=== PATIENT | male | born 1935 | race Caucasian/White ===

== ENCOUNTER → 2016-09-06 | Outpatient (CLI) | payer MEDICARE, OTHER ==
--- NOTE | 2016-09-06 11:34 | MR ---
MRI brain with and without contrast HISTORY: Lung carcinoma, dizziness Multiplanar multisequence and postcontrast images brain following 15 cc MultiHance IV. Correlation to CT brain September There is no restricted diffusion to suggest subacute ischemia. There are foci of abnormal enhancement involving the bilateral cerebellar hemispheres, bilateral cerebral hemispheres which show enhancemen t, there is some localized areas of increased signal on inversion recovery and T2-weighted sequences likely local edema or gliosis. Left-sided supratentorial lesions each measuring approximately 8-9 mm on postcontrast images, the cerebellar lesions measure approximately 6 mm to 14 mm, there are 4-5 les ions. Right thalamus and right temporal lobe show 4 mm foci of enhancement. Right occipital 4 mm focu s of enhancement also noted. Left frontal lesion axial image 16 shows ring enhancement and measures 7 to 8 mm. Periventricular and subcortical hyperintensities are also present on inversion recovery and T2-weighted sequences. No mass effect or midline shift. No hemorrhage or hydrocephalus. Corpus callo sum, pituitary, cervical medullary junction, cerebellopontine angles are within normal limits. There is cortical atrophy. Possible mucous retention cyst left maxillary sinus. Orbits show symmetric appearance. IMPRESSION: Metastatic disease to the brain.
== END | disposition home or self-care (01) ==
LOC: RADMRIMAIN 10:25
PROVIDERS: ATTEND Internal Medicine Hematology & Oncology
DX: C34.90 Malignant neoplasm of unspecified part of unspecified bronchus or lung (principal); R42 Dizziness and giddiness
CPT/HCPCS: 70553; A9577

== ENCOUNTER 2016-10-07 09:39 | Emergency (ER) | payer MEDICARE, OTHER ==
[2016-10-07 09:53] VITALS: RESP 18
[2016-10-07] MEDS ORDERED: SODIUM CHLORIDE 0.9% 1,000 ML IV STA (10:36)
[2016-10-07] MEDS ORDERED: SODIUM CHLORIDE 0.9% 500 ML IV STA (10:36)
--- NOTE | 2016-10-07 10:45 | ED ---
General Adult HPI - General Chief complaint: Dizziness Stated complaint: hypotension sent by [facility] Time Seen by Provider: 10/07/16 09:59 Source: patient, family, RN notes reviewed, old records reviewed Mode of arrival: ambulatory Limitations: no limitations - History of Present Illness Initial comments: This is a 81-year-old male the ER for evaluation. The patient comes in the ER for evaluation of weakness, low blood pressure possible dehydration. Patient is going through radiation regarding CVA, and metastasis. Patient and family states that his appetite and a little decreased ability denies any complaints here patient states he feels well no fevers no cough no congestion no abdominal pain no chest pain no shortness of breath no nausea vomiting or diarrhea. - Related Data Home Medications Medication Instructions Recorded Confirmed Aspirin [Adult Low Dose Aspirin EC] 81 mg PO DAILY 09/26/15 10/07/16 Calcium Carbonate/Vitamin D3 1 tab PO DAILY 09/26/15 10/07/16 [Calcium 600 + Vit D Tablet] Carvedilol [Coreg] 6.25 mg PO BID 09/26/15 10/07/16 Cyanocobalamin [Vitamin B-12] 1,000 mg PO Q48H 09/26/15 10/07/16 Ferrous Sulfate [Iron (65 MG 325 mg PO DAILY 09/26/15 10/07/16 Elemental)] Glimepiride [Amaryl] 0.5 mg PO HS 09/26/15 10/07/16 Insulin Glargine [Lantus] 10 unit SQ PC-LUNCH 09/26/15 10/07/16 Multivit-Min/FA/Lycopene/Lut 1 tab PO DAILY 09/26/15 10/07/16 [Centrum Silver Tablet] metFORMIN HCL 2,000 mg PO BID 09/26/15 10/07/16 Ascorbic Acid [Vitamin C] 500 mg PO HS 10/07/16 10/07/16 Dexamethasone [Hexadrol] 4 mg PO DAILY 10/07/16 10/07/16 Lisinopril [Prinivil] 5 mg PO HS 10/07/16 10/07/16 Allergies Allergy/AdvReac Type Severity Reaction Status Date / Time No Known Allergies Allergy Verified 10/07/16 10:21 Review of Systems ROS Statement: Those systems with pertinent positive or pertinent negative responses have been documented in the HPI. ROS Other: All systems not noted in ROS Statement are negative. Past Medical History Past Medical History: Cancer, Diabetes Mellitus, Hyperlipidemia, Hypertension, Memory Impairment Additional Past Medical History / Comment(s): PATIENT FELL IN JULY 2015 AND HURT HIS RIGHT SHOULDER, A LUNG TUMOR WAS DISCOVERED ON X-RAY. HX OF RENAL CALCULI. Diagnosed Lung CA Sep 2015, brain cancer, radiation and chemo History of Any Multi-Drug Resistant Organisms: None Reported Past Surgical History: Tonsillectomy Additional Past Surgical History / Comment(s): LITHOTRIPSY, Lung Biopsy, cataract surgery Past Anesthesia/Blood Transfusion Reactions: No Reported Reaction Additional Past Anesthesia/Blood Transfusion Reaction / Comment(s): HAS NEVER HAD A GENERAL ANESTHESIA. Past Psychological History: Depression Additional Psychological History / Comment(s): SOME MEMORY LOSS, COMPETENT TO SIGN CONSENT. Smoking Status: Former smoker Past Alcohol Use History: Rare Additional Past Alcohol Use History / Comment(s): QUIT SMOKING 40 YRS AGO ABOUT 1 PPD. Past Drug Use History: None Reported - Past Family History Mother Family Medical History: Cancer Additional Family Medical History / Comment(s): ovarian General Exam Limitations: no limitations General appearance: alert, in no apparent distress, cachectic Head exam: Present: atraumatic, normocephalic, normal inspection Eye exam: Present: normal appearance, PERRL, EOMI. Absent: scleral icterus, conjunctival injection, periorbital swelling ENT exam: Present: mucous membranes dry, mucous membranes moist Neck exam: Present: normal inspection. Absent: tenderness, meningismus, lymphadenopathy Respiratory exam: Present: normal lung sounds bilaterally. Absent: respiratory distress, wheezes, rales, rhonchi, stridor Cardiovascular Exam: Present: regular rate, normal rhythm, normal heart sounds. Absent: systolic murmur, diastolic murmur, rubs, gallop, clicks GI/Abdominal exam: Present: soft, normal bowel sounds. Absent: distended, tenderness, guarding, rebound, rigid Extremities exam: Present: normal inspection, full ROM, normal capillary refill. Absent: tenderness, pedal edema, joint swelling, calf tenderness Back exam: Present: normal inspection Neurological exam: Present: alert, oriented X3, CN II-XII intact Psychiatric exam: Present: normal affect, normal mood Skin exam: Present: warm, dry, intact, normal color. Absent: rash Course Vital Signs 10/07/16 10/07/16 09:47 10:50 Temperature 97 F L Pulse Rate 86 81 Respiratory 18 18 Rate Blood Pressure 113/56 109/58 O2 Sat by Pulse 98 98 Oximetry - Reevaluation(s) Reevaluation #1: 10/07/16 11:36 Patient's dizziness is resolving with IV fluid, symptoms are improving blood pressures in normal and stable Medical Decision Making - Medical Decision Making 81 male ER for evaluation of low blood pressure. At this time patient is a symptomatic measures with her bowel pain, no recent nausea vomiting or diarrhea , mild decreased appetite mild dehydration. Patient's resuscitated emergency room, this time feels better and will be discharged home - Lab Data Result diagrams: 10/07/16 09:58 10/07/16 09:58 Lab Results 10/07/16 10/07/16 10/07/16 Range/Units 09:58 09:58 09:58 WBC 3.6 L (3.8-10.6) k/uL RBC 3.79 L (4.30-5.90) m/uL Hgb 12.1 L (13.0-17.5) gm/dL Hct 36.1 L (39.0-53.0) % MCV 95.2 (80.0-100.0) fL MCH 31.9 (25.0-35.0) pg MCHC 33.5 (31.0-37.0) g/dL RDW 14.5 (11.5-15.5) % Plt Count 69 L (150-450) k/uL Neutrophils % 83 % Lymphocytes % 8 % Monocytes % 6 % Eosinophils % 2 % Basophils % 0 % Neutrophils # 3.0 (1.3-7.7) k/uL Lymphocytes # 0.3 L (1.0-4.8) k/uL Monocytes # 0.2 (0-1.0) k/uL Eosinophils # 0.1 (0-0.7) k/uL Basophils # 0.0 (0-0.2) k/uL Sodium 141 (137-145) mmol/L Potassium 3.9 (3.5-5.1) mmol/L Chloride 102 (98-107) mmol/L Carbon Dioxide 29 (22-30) mmol/L Anion Gap 10 mmol/L BUN 33 H (9-20) mg/dL Creatinine 1.08 (0.66-1.25) mg/dL Est GFR (MDRD) Af Amer >60 (>60 ml/min/1.73 sqM) Est GFR (MDRD) Non-Af >60 (>60 ml/min/1.73 sqM) Glucose 148 H (74-99) mg/dL Calcium 9.3 (8.4-10.2) mg/dL Phosphorus 2.9 (2.5-4.5) mg/dL Magnesium 1.5 L (1.6-2.3) mg/dL Total Bilirubin 0.4 (0.2-1.3) mg/dL AST 13 L (17-59) U/L ALT 33 (21-72) U/L Alkaline Phosphatase 50 (38-126) U/L Total Creatine Kinase <20 L (55-170) U/L CK-MB (CK-2) 1.1 (0.0-2.4) ng/mL CK-MB (CK-2) Rel Index 0.0 Troponin I <0.012 (0.000-0.034) ng/mL Total Protein 5.6 L (6.3-8.2) g/dL Albumin 3.0 L (3.5-5.0) g/dL Urine Color Urine Appearance (Clear) Urine pH (5.0-8.0) Ur Specific [place] (1.001-1.035) Urine Protein (Negative) Urine Glucose (UA) (Negative) Urine Ketones (Negative) Urine Blood (Negative) Urine Nitrate (Negative) Urine Bilirubin (Negative) Urine Urobilinogen (<2.0) mg/dL Ur Leukocyte Esterase (Negative) Urine RBC (0-5) /hpf Urine WBC (0-5) /hpf Ur Squamous Epith Cells (0-4) /hpf Calcium Oxalate Crystal (None) /hpf Urine Mucus (None) /hpf 10/07/16 Range/Units 10:51 WBC (3.8-10.6) k/uL RBC (4.30-5.90) m/uL Hgb (13.0-17.5) gm/dL Hct (39.0-53.0) % MCV (80.0-100.0) fL MCH (25.0-35.0) pg MCHC (31.0-37.0) g/dL RDW (11.5-15.5) % Plt Count (150-450) k/uL Neutrophils % % Lymphocytes % % Monocytes % % Eosinophils % % Basophils % % Neutrophils # (1.3-7.7) k/uL Lymphocytes # (1.0-4.8) k/uL Monocytes # (0-1.0) k/uL Eosinophils # (0-0.7) k/uL Basophils # (0-0.2) k/uL Sodium (137-145) mmol/L Potassium (3.5-5.1) mmol/L Chloride (98-107) mmol/L Carbon Dioxide (22-30) mmol/L Anion Gap mmol/L BUN (9-20) mg/dL Creatinine (0.66-1.25) mg/dL Est GFR (MDRD) Af Amer (>60 ml/min/1.73 sqM) Est GFR (MDRD) Non-Af (>60 ml/min/1.73 sqM) Glucose (74-99) mg/dL Calcium (8.4-10.2) mg/dL Phosphorus (2.5-4.5) mg/dL Magnesium (1.6-2.3) mg/dL Total Bilirubin (0.2-1.3) mg/dL AST (17-59) U/L ALT (21-72) U/L Alkaline Phosphatase (38-126) U/L Total Creatine Kinase (55-170) U/L CK-MB (CK-2) (0.0-2.4) ng/mL CK-MB (CK-2) Rel Index Troponin I (0.000-0.034) ng/mL Total Protein (6.3-8.2) g/dL Albumin (3.5-5.0) g/dL Urine Color Yellow Urine Appearance Clear (Clear) Urine pH 5.5 (5.0-8.0) Ur Specific [place] 1.024 (1.001-1.035) Urine Protein Trace H (Negative) Urine Glucose (UA) Trace H (Negative) Urine Ketones Trace H (Negative) Urine Blood Negative (Negative) Urine Nitrate Negative (Negative) Urine Bilirubin Negative (Negative) Urine Urobilinogen <2.0 (<2.0) mg/dL Ur Leukocyte Esterase Small H (Negative) Urine RBC 3 (0-5) /hpf Urine WBC 6 H (0-5) /hpf Ur Squamous Epith Cells <1 (0-4) /hpf Calcium Oxalate Crystal Rare H (None) /hpf Urine Mucus Rare H (None) /hpf Disposition Clinical Impression: Dehydration Disposition: HOME SELF-CARE Condition: Good Instructions: Dehydration (ED) Referrals: Anshul Betancourt MD [Primary Care Provider] - 1-2 days
[2016-10-07 10:56] LABS: Basophils % (A) 0 %; CHCM 33.7; Eosinophils # (A) 0.1 k/uL (0-0.7); Eosinophils % (A) 2 %; HCT 36.1 % (39.0-53.0); HDW 2.39; HGB 12.1 gm/dL (13.0-17.5); Luc # (Auto) 0.04; Luc % (Auto) 1; Lymphocytes # (A) 0.3 k/uL (1.0-4.8); Lymphocytes % (A) 8 %; MCH 31.9 pg (25.0-35.0); MCHC 33.5 g/dL (31.0-37.0); MCV 95.2 fL (80.0-100.0); Mean Platelet Volume 8.3; Monocytes # (A) 0.2 k/uL (0-1.0); Monocytes % (A) 6 %; Neutrophils % (A) 83 %; RBC 3.79 m/uL (4.30-5.90); RDW 14.5 % (11.5-15.5); WBC 3.6 k/uL (3.8-10.6); WBC (Perox) 3.74
[2016-10-07 11:04] LABS: Appearance,Urine Clear (Clear); Bilirubin,Urine Negative (Negative); Calcium Oxalate Crystals,Urine Rare /hpf; Glucose,Urine (UA) Trace (Negative); Ketones,Urine Trace (Negative); Leukocyte Esterase,Urine Small (Negative); Mucus,Urine Rare /hpf; Nitrite,Urine Negative (Negative); PH, Urine 5.5 (5.0-8.0); Particle Count 1354; Protein,Urine Trace (Negative); RBC,Urine 3 /hpf (0-5); Specific Gravity,Urine 1.024 (1.001-1.035); Squamous Epithelial Cell,Urine <1 /hpf (0-4); UA Billing (MACRO vs. MICRO) MICRO; Urobilinogen,Urine <2.0 mg/dL (<2.0); WBC,Urine 6 /hpf (0-5)
[2016-10-07 11:08] LABS: ALT 33 U/L (21-72); AST 13 U/L (17-59); Alkaline Phosphatase 50 U/L (38-126); Anion Gap 10 mmol/L; Blood Urea Nitrogen 33 mg/dL (9-20); Calcium 9.3 mg/dL (8.4-10.2); Carbon Dioxide 29 mmol/L (22-30); Chloride 102 mmol/L (98-107); Glucose 148 mg/dL (74-99); Magnesium 1.5 mg/dL (1.6-2.3); Non-African American GFR(MDRD) >60 (>60 ml/min/1.73 sqM); Phosphorous 2.9 mg/dL (2.5-4.5); Potassium 3.9 mmol/L (3.5-5.1); Sodium 141 mmol/L (137-145); Total Bilirubin 0.4 mg/dL (0.2-1.3); Total Protein 5.6 g/dL (6.3-8.2)
[2016-10-07 11:18] LABS: Creatine Kinase <20 U/L (55-170)
[2016-10-07 11:30] LABS: Creatine Kinase MB 1.1 ng/mL (0.0-2.4); Troponin I <0.012 ng/mL (0.000-0.034)
[2016-10-07 12:06] VITALS: BP 120/56; PULSE 18; TEMP 97.5
== END 2016-10-07 12:16 | disposition home or self-care (01) ==
LOC: EC 09:39
DX: E86.0 Dehydration (principal); Z79.82 Long term (current) use of aspirin; Z79.4 Long term (current) use of insulin; Z79.899 Other long term (current) drug therapy; E11.9 Type 2 diabetes mellitus without complications; I10 Essential (primary) hypertension; Z87.891 Personal history of nicotine dependence; Z79.52 Long term (current) use of systemic steroids; C34.90 Malignant neoplasm of unspecified part of unspecified bronchus or lung; C79.31 Secondary malignant neoplasm of brain
CPT/HCPCS: 36415; 80053; 81001; 82550; 82553; 83735; 84100; 84484; 85025; 87086; 96360; 99284

== ENCOUNTER 2016-10-16 09:20 | Inpatient (IN) | payer OTHER, MEDICARE ==
[2016-10-16] MEDS ORDERED: SODIUM CHLORIDE 0.9% 500 ML IV ONE (09:32)
--- NOTE | 2016-10-16 09:35 | ED ---
General Adult HPI - General Chief complaint: Weakness Stated complaint: Fall Time Seen by Provider: 10/16/16 09:20 Source: patient, family, EMS, RN notes reviewed Mode of arrival: EMS - History of Present Illness Initial comments: This is an 81-year-old male who presents to the emergency department with a past medical history significant for lung brain cancer. Patient has been falling more recently was seen in the ER a few days ago for having fallen. Today he tried to get up out of bed and slipped out of bed and hit his head on the nightstand with down he does not complain of headache now is conscious he was not days. Patient denies any neck pain patient denies any numbness weakness. Patient currently has no complaint of pain. He denies any chest pain or abdominal pain. Patient denies difficulty breathing shortness of breath. Patient states she just extremely weak and he was unable to stand up from sitting in bed. Patient denies any fever chills or cough recently. Patient denies any back pain. According to he also has an abrasion on his back over the right scapula. - Related Data Home Medications Medication Instructions Recorded Confirmed Aspirin [Adult Low Dose Aspirin EC] 81 mg PO DAILY 09/26/15 10/16/16 Calcium Carbonate/Vitamin D3 1 tab PO DAILY 09/26/15 10/16/16 [Calcium 600 + Vit D Tablet] Carvedilol [Coreg] 3.125 mg PO BID 09/26/15 10/16/16 Cyanocobalamin [Vitamin B-12] 1,000 mg PO Q48H 09/26/15 10/16/16 Ferrous Sulfate [Iron (65 MG 325 mg PO DAILY 09/26/15 10/16/16 Elemental)] Glimepiride [Amaryl] 0.5 mg PO HS 09/26/15 10/16/16 Insulin Glargine [Lantus] 10 unit SQ PC-LUNCH 09/26/15 10/16/16 Multivit-Min/FA/Lycopene/Lut 1 tab PO DAILY 09/26/15 10/16/16 [Centrum Silver Tablet] metFORMIN HCL 1,000 mg PO BID 09/26/15 10/16/16 Ascorbic Acid [Vitamin C] 500 mg PO HS 10/07/16 10/16/16 Saxagliptin HCl [Onglyza] 5 mg PO DAILY 10/16/16 10/16/16 Allergies Allergy/AdvReac Type Severity Reaction Status Date / Time No Known Allergies Allergy Verified 10/16/16 10:01 Review of Systems ROS Statement: Those systems with pertinent positive or pertinent negative responses have been documented in the HPI. ROS Other: All systems not noted in ROS Statement are negative. Past Medical History Past Medical History: Cancer, Diabetes Mellitus, Hyperlipidemia, Hypertension, Memory Impairment Additional Past Medical History / Comment(s): PATIENT FELL IN JULY 2015 AND HURT HIS RIGHT SHOULDER, A LUNG TUMOR WAS DISCOVERED ON X-RAY. HX OF RENAL CALCULI. Diagnosed Lung CA Sep 2015, brain cancer, radiation and chemo History of Any Multi-Drug Resistant Organisms: None Reported Past Surgical History: Tonsillectomy Additional Past Surgical History / Comment(s): LITHOTRIPSY, Lung Biopsy, cataract surgery Past Anesthesia/Blood Transfusion Reactions: No Reported Reaction Additional Past Anesthesia/Blood Transfusion Reaction / Comment(s): HAS NEVER HAD A GENERAL ANESTHESIA. Past Psychological History: Depression Additional Psychological History / Comment(s): SOME MEMORY LOSS, COMPETENT TO SIGN CONSENT. Smoking Status: Former smoker Past Alcohol Use History: Rare Additional Past Alcohol Use History / Comment(s): QUIT SMOKING 40 YRS AGO ABOUT 1 PPD. Past Drug Use History: None Reported - Past Family History Mother Family Medical History: Cancer Additional Family Medical History / Comment(s): ovarian General Exam - General Exam Comments Initial Comments: GENERAL: Patient is well-developed and well-nourished. Patient is nontoxic and well- hydrated and is in mild distress. ENT: Neck is soft and supple. No significant lymphadenopathy is noted. Oropharynx is clear. Moist mucous membranes. Neck has full range of motion without eliciting any pain. EYES: The sclera were anicteric and conjunctiva were pink and moist. Extraocular movements were intact and pupils were equal round and reactive to light. Eyelids were unremarkable. PULMONARY: Unlabored respirations. Good breath sounds bilaterally. Patient has bibasilar crackles. CARDIOVASCULAR: There is a regular rate and rhythm without any murmurs gallops or rubs. ABDOMEN: Soft and nontender with normal bowel sounds. No palpable organomegaly was noted. There is no palpable pulsatile mass. SKIN: Skin is clear with no lesions or rashes and otherwise unremarkable. NEUROLOGIC: Patient is alert and oriented x3. Cranial nerves II through XII are grossly intact. Motor and sensory are also intact. Normal speech, volume and content. Symmetrical smile. MUSCULOSKELETAL: Normal extremities with adequate strength and full range of motion. LYMPHATICS: No significant lymphadenopathy is noted PSYCHIATRIC: Normal psychiatric evaluation. Normal interpersonal interactions appears functionally intact in deals appropriately with others. No signs of depression. No signs of anxiety. Course Vital Signs 10/16/16 10/16/16 10/16/16 09:27 09:32 10:39 Temperature 101.6 F H 99.6 F Pulse Rate 104 H 101 H 95 Respiratory 22 18 18 Rate Blood Pressure 140/63 115/59 O2 Sat by Pulse 96 97 Oximetry Medical Decision Making - Medical Decision Making EKG shows a normal sinus rhythm at 99 bpm CA interval 224 QRS is 118 QT interval 348 QTC is 446. Patient's EKG shows a right bundle branch block there is no ST segment elevation or depression Chest x-ray shows an area of possible infiltrate that combination with the fever shortness of breath admitted the patient for pneumonia. Spoke with Dr. Christensen admit the patient to Dr. Christensen I continued antibiotics floor. - Lab Data Result diagrams: 10/16/16 09:35 10/16/16 09:35 Lab Results 10/16/16 10/16/16 10/16/16 Range/Units 09:30 09:35 09:35 WBC 3.7 L (3.8-10.6) k/uL RBC 3.36 L (4.30-5.90) m/uL Hgb 10.8 L (13.0-17.5) gm/dL Hct 31.1 L (39.0-53.0) % MCV 92.5 (80.0-100.0) fL MCH 32.1 (25.0-35.0) pg MCHC 34.7 (31.0-37.0) g/dL RDW 14.3 (11.5-15.5) % Plt Count 82 L (150-450) k/uL Neutrophils % 87 % Lymphocytes % 8 % Monocytes % 4 % Eosinophils % 1 % Basophils % 0 % Neutrophils # 3.2 (1.3-7.7) k/uL Lymphocytes # 0.3 L (1.0-4.8) k/uL Monocytes # 0.1 (0-1.0) k/uL Eosinophils # 0.0 (0-0.7) k/uL Basophils # 0.0 (0-0.2) k/uL Manual Slide Review Performed Sodium 140 (137-145) mmol/L Potassium 4.1 (3.5-5.1) mmol/L Chloride 103 (98-107) mmol/L Carbon Dioxide 29 (22-30) mmol/L Anion Gap 8 mmol/L BUN 18 (9-20) mg/dL Creatinine 0.87 (0.66-1.25) mg/dL Est GFR (MDRD) Af Amer >60 (>60 ml/min/1.73 sqM) Est GFR (MDRD) Non-Af >60 (>60 ml/min/1.73 sqM) Glucose 104 H (74-99) mg/dL POC Glucose (mg/dL) (75-99) mg/dL POC [employer] ID Plasma Lactic Acid Darius (0.7-2.0) mmol/L Calcium 9.3 (8.4-10.2) mg/dL Total Bilirubin 0.7 (0.2-1.3) mg/dL AST 16 L (17-59) U/L ALT 30 (21-72) U/L Alkaline Phosphatase 58 (38-126) U/L Total Protein 5.6 L (6.3-8.2) g/dL Albumin 2.8 L (3.5-5.0) g/dL Influenza Type A RNA Not Detected (Not Detectd) Influenza Type B (PCR) Not Detected (Not Detectd) 10/16/16 10/16/16 Range/Units 09:35 09:37 WBC (3.8-10.6) k/uL RBC (4.30-5.90) m/uL Hgb (13.0-17.5) gm/dL Hct (39.0-53.0) % MCV (80.0-100.0) fL MCH (25.0-35.0) pg MCHC (31.0-37.0) g/dL RDW (11.5-15.5) % Plt Count (150-450) k/uL Neutrophils % % Lymphocytes % % Monocytes % % Eosinophils % % Basophils % % Neutrophils # (1.3-7.7) k/uL Lymphocytes # (1.0-4.8) k/uL Monocytes # (0-1.0) k/uL Eosinophils # (0-0.7) k/uL Basophils # (0-0.2) k/uL Manual Slide Review Sodium (137-145) mmol/L Potassium (3.5-5.1) mmol/L Chloride (98-107) mmol/L Carbon Dioxide (22-30) mmol/L Anion Gap mmol/L BUN (9-20) mg/dL Creatinine (0.66-1.25) mg/dL Est GFR (MDRD) Af Amer (>60 ml/min/1.73 sqM) Est GFR (MDRD) Non-Af (>60 ml/min/1.73 sqM) Glucose (74-99) mg/dL POC Glucose (mg/dL) 104 H (75-99) mg/dL POC [employer] Regist[employer] ID Sixto Champagne Plasma Lactic Acid Darius 1.2 (0.7-2.0) mmol/L Calcium (8.4-10.2) mg/dL Total Bilirubin (0.2-1.3) mg/dL AST (17-59) U/L ALT (21-72) U/L Alkaline Phosphatase (38-126) U/L Total Protein (6.3-8.2) g/dL Albumin (3.5-5.0) g/dL Influenza Type A RNA (Not Detectd) Influenza Type B (PCR) (Not Detectd) Disposition Clinical Impression: Pneumonia Disposition: [facility]MITTED IP TO [facility] Time of Disposition: 11:30
[2016-10-16 09:39] LABS: Glucose,Whole Blood 104 mg/dL (75-99)
[2016-10-16 09:59] LABS: Basophils % (A) 0 %; CH 31.8; CHCM 34.5; Eosinophils % (A) 1 %; HCT 31.1 % (39.0-53.0); HDW 2.68; HGB 10.8 gm/dL (13.0-17.5); Luc # (Auto) 0.03; Luc % (Auto) 1; Lymphocytes # (A) 0.3 k/uL (1.0-4.8); Lymphocytes % (A) 8 %; MCH 32.1 pg (25.0-35.0); MCHC 34.7 g/dL (31.0-37.0); MCV 92.5 fL (80.0-100.0); Mean Platelet Volume 8.8; Monocytes # (A) 0.1 k/uL (0-1.0); Monocytes % (A) 4 %; Neutrophils # (A) 3.2 k/uL (1.3-7.7); Neutrophils % (A) 87 %; RBC 3.36 m/uL (4.30-5.90); RDW 14.3 % (11.5-15.5); WBC 3.7 k/uL (3.8-10.6); WBC (Perox) 3.74
--- NOTE | 2016-10-16 09:59 | XR ---
EXAMINATION TYPE: XR chest 2V DATE OF EXAM: 10/16/2016 9:52 AM COMPARISON: 09/29/2015 TECHNIQUE: PA and lateral views submitted. HISTORY: Difficulty breathing FINDINGS: There is a right hilar and suprahilar soft tissue mass. Area of consolidation the right upper lobe no von. Left lung appears clear. Underlying COPD noted. Hypertrophic and degenerative change of the spin e. IMPRESSION: 1. Soft tissue mass right upper lobe corresponds to PET scan abnormality. 2. Subsegmental consolidation right upper lobe could be related to atelectasis or infiltrate.
[2016-10-16 10:11] LABS: ALT 30 U/L (21-72); AST 16 U/L (17-59); Alkaline Phosphatase 58 U/L (38-126); Anion Gap 8 mmol/L; Blood Urea Nitrogen 18 mg/dL (9-20); Calcium 9.3 mg/dL (8.4-10.2); Carbon Dioxide 29 mmol/L (22-30); Chloride 103 mmol/L (98-107); Glucose 104 mg/dL (74-99); Non-African American GFR(MDRD) >60 (>60 ml/min/1.73 sqM); Potassium 4.1 mmol/L (3.5-5.1); Sodium 140 mmol/L (137-145); Total Bilirubin 0.7 mg/dL (0.2-1.3); Total Protein 5.6 g/dL (6.3-8.2)
[2016-10-16 10:18] LABS: Manual Review Performed
[2016-10-16] MEDS ORDERED: LEVOFLOXACIN 750MG-D5W PMX 750 MG in DEXTROSE/WATER 1 150ML.BAG IVPB STA (10:19)
[2016-10-16] MEDS ORDERED: PNEUMONIA PROTOCOL UTILIZED 1 EACH MISC PO PRN (11:30)
[2016-10-16 11:59] LABS: Appearance,Urine Clear (Clear); Bilirubin,Urine Negative (Negative); Glucose,Urine (UA) Trace (Negative); Ketones,Urine Negative (Negative); Leukocyte Esterase,Urine Negative (Negative); Mucus,Urine Rare /hpf; Nitrite,Urine Negative (Negative); Particle Count 2028; Protein,Urine 1+ (Negative); Specific Gravity,Urine 1.018 (1.001-1.035); UA Billing (MACRO vs. MICRO) MICRO; Urobilinogen,Urine <2.0 mg/dL (<2.0); WBC,Urine 3 /hpf (0-5)
[2016-10-16] MEDS: SODIUM CHLORIDE 0.9% 1,000 ML IV SCH (12:06)
[2016-10-16] MEDS: AZITHROMYCIN 500 MG TAB PO SCH (16:08)
[2016-10-16 17:10] LABS: Glucose,Whole Blood 174 mg/dL (75-99)
[2016-10-16] MEDS: IPRATROPIUM-ALBUTEROL 3 ML NEB INHALATION SCH ×3 (17:32→19:30)
[2016-10-16] MEDS: INSULIN LISPRO (humaLOG) 300 UNIT/3 ML VIAL SQ SCH ×2 (17:35→20:55)
[2016-10-16] MEDS: CARVEDILOL 3.125 MG TAB PO SCH (17:35)
[2016-10-16 20:06] LABS: Glucose,Whole Blood 105 mg/dL (75-99)
--- NOTE | 2016-10-16 22:24 | HP ---
DATE OF ADMISSION: Patient is an 81-year-old with a history of lung cancer on the right side. Patient is receiving chemotherapy. 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 He came in after a fall and patient was found to have fever. Patient denied any cough or runny nose. Patient denied any fever or chills, although patient's chest x-ray did show some suspicious pneumonic process. UA is essentially within normal limits. Patient does not have any other signs or symptoms of infection. Patient is admitted for pneumonia. Patient was never admitted in the hospital; was in ER recently. Patient was started on Rocephin and azithromycin. Patient's influenza testing is negative. Patient is quite weak. Will obtain PT and OT consultation. Part of his weakness is a part of cancer cachexia. ROS: All other systems were reviewed and were negative. Home medications include: 1. Aspirin. 2. Calcium carbonate. 3. Coreg. 4. Cyanocobalamin. 5. Ferrous sulfate. 6. Glimepiride. 7. Glargine. 8. Multivitamin. 9. Metformin. 10. Ascorbic acid. 11. Saxagliptin. ALLERGIES: NO KNOWN DRUG ALLERGIES. Past medical history is significant for: 1. Diabetes mellitus. 2. 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 3. Hypertension. 4. Tonsillectomy. 5. Lithotripsy. 6. Cataract surgery in the past. 7. Depression. Former smoker; used to smoke 1 pack per day. Denied any alcohol abuse or any drug abuse. FAMILY HISTORY: Mother had ovarian cancer. PHYSICAL EXAMINATION: VITAL SIGNS: Temperature 98.5, pulse of 93, respiratory rate of 18. Blood pressure is 103/58. Saturating at 93% on 2 L of oxygen by nasal cannula. GENERAL: Patient has thin build. Appears to be tired, with malaise. HEENT: Pupils are round and equally reacting to light. EOMI. No scleral icterus. No conjunctival pallor. Normocephalic, atraumatic. No pharyngeal erythema. No thyromegaly. CARDIOVASCULAR: S1 and S2 present. No murmurs, rubs, or gallops. PULMONARY: Clear to auscultation. No wheezing was appreciated. No crackles were appreciated. I did not hear any clear-cut bronchophony or egophony on exam. ABDOMEN: Soft, nontender, nondistended, normoactive bowel sounds. No palpable organomegaly. MUSCULOSKELETAL: No joint swelling or deformity. EXTREMITIES: No cyanosis, clubbing, or pedal edema. NEUROLOGICAL: Gross neurological examination did not reveal any focal deficits. SKIN: No rashes. LABORATORY DATA: CBC, CMP are abnormal for low platelet count of 82,000, hemoglobin of 10.8. Normocytic anemia, so probably anemia of chronic disease. Trace protein in the urine. Chest x-ray as mentioned above. ASSESSMENT AND PLAN: 1. Sepsis, probably due to postobstructive pneumonia. Patient will be started on ceftriaxone and azithromycin. Probably Unasyn may more appropriate, but we will see how he does with ceftriaxone and Rocephin. Levofloxacin will be discontinued. 2. Generalized weakness; may be related to pneumonia or cancer cachexia itself. 3. Lung cancer with metastatic disease. Patient is receiving chemotherapy and radiation therapy. 4. Generalized weakness. Will get PT and OT consultation. 5. Thrombocytopenia secondary to chemoradiation therapy. 6. Diabetes mellitus. Will use sliding scale insulin. 7. Hyperlipidemia, for which we will go ahead and continue his home medications. MTDD
[2016-10-16 22:48] LABS: Hemoglobin A1C 7.3 % (4.2-6.1)
[2016-10-17 06:50] LABS: Glucose,Whole Blood 130 mg/dL (75-99)
[2016-10-17] MEDS: INSULIN LISPRO (humaLOG) 300 UNIT/3 ML VIAL SQ SCH ×4 (07:35→20:36)
[2016-10-17] MEDS: IPRATROPIUM-ALBUTEROL 3 ML NEB INHALATION SCH ×4 (07:47→21:29)
[2016-10-17] MEDS ORDERED: LEVOFLOXACIN 750MG-D5W PMX 750 MG in DEXTROSE/WATER 1 150ML.BAG IVPB SCH (09:00)
[2016-10-17] MEDS: CARVEDILOL 3.125 MG TAB PO SCH ×2 (09:07→17:21)
[2016-10-17] MEDS: ASPIRIN 81 MG CHEW PO SCH (09:07)
[2016-10-17] MEDS: AZITHROMYCIN 500 MG TAB PO SCH (09:07)
[2016-10-17 09:09] LABS: CH 31.6; CHCM 33.6; HCT 30.3 % (39.0-53.0); HDW 2.77; HGB 10.1 gm/dL (13.0-17.5); MCH 31.4 pg (25.0-35.0); MCHC 33.3 g/dL (31.0-37.0); MCV 94.3 fL (80.0-100.0); Mean Platelet Volume 7.9; RBC 3.21 m/uL (4.30-5.90); RDW 13.9 % (11.5-15.5); WBC 3.2 k/uL (3.8-10.6)
[2016-10-17 09:20] LABS: Anion Gap 10 mmol/L; Blood Urea Nitrogen 14 mg/dL (9-20); Calcium 8.6 mg/dL (8.4-10.2); Carbon Dioxide 24 mmol/L (22-30); Chloride 101 mmol/L (98-107); Glucose 137 mg/dL (74-99); Non-African American GFR(MDRD) >60 (>60 ml/min/1.73 sqM); Potassium 3.6 mmol/L (3.5-5.1); Sodium 135 mmol/L (137-145)
[2016-10-17 11:13] LABS: Glucose,Whole Blood 192 mg/dL (75-99)
[2016-10-17 11:58] VITALS: BMI 20.5
[2016-10-17] MEDS: SODIUM CHLORIDE 0.9% 1,000 ML IV SCH ×3 (12:09→19:38)
[2016-10-17] MEDS: INSULIN GLARGINE 100 UNIT/ML 10 ML VIAL SQ SCH (12:48)
[2016-10-17 16:49] LABS: Glucose,Whole Blood 276 mg/dL (75-99)
--- NOTE | 2016-10-17 17:48 | P.CONS ---
History of Present Illness - Reason for Consult Consult date: 10/17/16 malignancy Requesting physician: Sahil Christensen - Chief Complaint fall, weakness - History of Present Illness Pt is a very pleasant 81 year old male pt of Dr. Ford who was had a fall resulting in back pain in Sep 2015. He was seen by PCP and xrays revealed RUL mass, CT on 09/27/15 revealed 2.7 X 2.7cm RUL mass, no radiologic evident of mediastinal involvement. 11/22/15 PET revealed increased uptake at primary site, right posterior 6th rib with expansile lesion and at L5 with large lytic, malignant-appearing, lesion, bone scan positive at the 2 lesions described, no other sites. 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 He was started on carboplatin and taxol days 1 & 8. PET f/u showed improved primary lung tumor. Pt was having progressive chemo toxicities including fatigue, lack of stamina anorexia so treatment was held in Mid February. After break from chemo pt was feeling much better so nivolumab therapy was initiated, he had 11 cycles and did very well. In Aug he requested a break from treatment. Unfortunately follow up imaging showed brain mets in Sep. He recently completed 10 WBRT, he has been having trouble with balance and falls, also dehydration. When seen today pt is not able to tell me much about his treatment history but he denied nausea, SOB, chest pain, need to go to the bathroom or pain. Pt has a remote history of smoking, 30 year pack history quitting 45 years ago. He also had stage I Prostate cancer diagnosed 12 years ago and treated with radiation with no evidence of disease. 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 History of Any Multi-Drug Resistant Organisms: None Reported Past Surgical History: Tonsillectomy Additional Past Surgical History / Comment(s): LITHOTRIPSY, R lung bronchoscopy with biopsy, bilateral cataract surgery with lens implants, colonoscopy. Past Anesthesia/Blood Transfusion Reactions: No Reported Reaction Additional Past Anesthesia/Blood Transfusion Reaction / Comm: HAS NEVER HAD A GENERAL ANESTHESIA. Past Psychological History: Depression Additional Psychological History / Comment(s): SLIGHT MEMORY LOSS. Pt resides with his spouse. He uses a walker to ambulate. He no longer drives, his spouse can drive. He was to start receiving home care (they cannot recall name of company), today. Smoking Status: Former smoker Past Alcohol Use History: Rare Additional Past Alcohol Use History / Comment(s): Pt started smoking as a teen and QUIT SMOKING 40 YRS AGO. Was ABOUT 1 PPD. Past Drug Use History: None Reported - Past Family History Mother Family Medical History: Cancer Additional Family Medical History / Comment(s): ovarian cancer. Mother at the age of 95 yrs. Father Family Medical History: Myocardial Infarction (ND) Additional Family Medical History / Comment(s): Father at the age of 65yrs of a ND. Medications and Allergies Home Medications Medication Instructions Recorded Confirmed Type Aspirin [Adult Low Dose Aspirin EC] 81 mg PO DAILY 09/26/15 10/16/16 History Calcium Carbonate/Vitamin D3 1 tab PO DAILY 09/26/15 10/16/16 History [Calcium 600 + Vit D Tablet] Carvedilol [Coreg] 3.125 mg PO BID 09/26/15 10/16/16 History Cyanocobalamin [Vitamin B-12] 1,000 mg PO Q48H 09/26/15 10/16/16 History Ferrous Sulfate [Iron (65 MG 325 mg PO DAILY 09/26/15 10/16/16 History Elemental)] Glimepiride [Amaryl] 0.5 mg PO HS 09/26/15 10/16/16 History Insulin Glargine [Lantus] 10 unit SQ PC-LUNCH 09/26/15 10/16/16 History Multivit-Min/FA/Lycopene/Lut 1 tab PO DAILY 09/26/15 10/16/16 History [Centrum Silver Tablet] metFORMIN HCL 1,000 mg PO BID 09/26/15 10/16/16 History Ascorbic Acid [Vitamin C] 500 mg PO HS 10/07/16 10/16/16 History Saxagliptin HCl [Onglyza] 5 mg PO DAILY 10/16/16 10/16/16 History Allergies Allergy/AdvReac Type Severity Reaction Status Date / Time No Known Allergies Allergy Verified 10/16/16 10:01 Physical Exam Vitals: Vital Signs Temp Pulse Pulse Resp BP Pulse Ox 10/17/16 15:45 90 10/17/16 15:41 98.3 F 90 18 112/56 94 L 10/17/16 15:34 88 10/17/16 11:30 96 10/17/16 08:13 98.1 F 86 18 118/57 96 10/17/16 08:03 90 10/17/16 07:48 92 10/17/16 00:00 16 10/16/16 21:42 98.4 F 92 16 126/66 93 L 10/16/16 19:37 88 10/16/16 19:30 96 Intake and Output 10/17/16 10/17/16 10/17/16 06:59 14:59 22:59 Output Total 250 Balance -250 Output: Urine 250 Other: # Voids 1 # Bowel Movements 1 1 Weight 66.678 kg Patient Weight 10/18/16 06:59 Weight 66.678 kg - Constitutional General appearance: cooperative, no acute distress, thin - EENT Eyes: PERRLA, normal appearance ENT: normal oropharynx - Neck Neck: no lymphadenopathy - Respiratory Respiratory: bilateral: CTA, diminished - Cardiovascular Rhythm: regular Heart sounds: normal: S1, S2 leg Peripheral Edema: bilateral: None - Gastrointestinal General gastrointestinal: no absent bowel sounds, no decreased bowel sounds, no distended, no hepatomegaly, no hyperactive bowel sounds, no normal bowel sounds , organomegaly, no rigid, no scaphoid, soft, no splenomegaly, no tenderness, no umbilical hernia, no ventral hernia - Integumentary radiation discoloration to skin on the head - Neurologic No gross motor deficits - Musculoskeletal Musculoskeletal: generalized weakness - Psychiatric Pt is oriented to self, place, not clear on situation, remote memory intact, calm and cooperative Results CBC & Chem 7: 10/17/16 08:25 10/17/16 08:25 Labs: Abnormal Lab Results - Last 24 Hours (Table) 10/16/16 10/16/16 10/17/16 Range/Units 16:59 20:04 06:47 WBC (3.8-10.6) k/uL RBC (4.30-5.90) m/uL Hgb (13.0-17.5) gm/dL Hct (39.0-53.0) % Plt Count (150-450) k/uL Sodium (137-145) mmol/L Glucose (74-99) mg/dL POC Glucose (mg/dL) 174 H 105 H 130 H (75-99) mg/dL 10/17/16 10/17/16 10/17/16 Range/Units 08:25 08:25 11:03 WBC 3.2 L (3.8-10.6) k/uL RBC 3.21 L (4.30-5.90) m/uL Hgb 10.1 L (13.0-17.5) gm/dL Hct 30.3 L (39.0-53.0) % Plt Count 65 L (150-450) k/uL Sodium 135 L (137-145) mmol/L Glucose 137 H (74-99) mg/dL POC Glucose (mg/dL) 192 H (75-99) mg/dL 10/17/16 Range/Units 16:47 WBC (3.8-10.6) k/uL RBC (4.30-5.90) m/uL Hgb (13.0-17.5) gm/dL Hct (39.0-53.0) % Plt Count (150-450) k/uL Sodium (137-145) mmol/L Glucose (74-99) mg/dL POC Glucose (mg/dL) 276 H (75-99) mg/dL Microbiology - Last 24 Hours (Table) 10/17/16 07:55 Gram Stain - Preliminary Sputum Sputum Culture - Preliminary Chest x-ray: report reviewed Assessment and Plan (1) Metastatic adenocarcinoma Narrative/Plan: Known metastatic lung adenocarcinoma, recent brain mets, pt completed WBRT about 2-3 weeks ago. He received 11 cycles of opdivo, last dose Aug 2016, he is on monthly zometa. Pt is due to f/u with Dr. Ford a few weeks after completion of radiation for evaluation. He has received hydration a few times in the last month in our office. Will follow and see how pt does with further recommendations regarding treatment to follow. Status: Chronic
[2016-10-17 20:37] LABS: Glucose,Whole Blood 211 mg/dL (75-99)
[2016-10-18] MEDS: SODIUM CHLORIDE 0.9% 1,000 ML IV SCH ×2 (05:31→15:49)
[2016-10-18 07:51] LABS: Glucose,Whole Blood 111 mg/dL (75-99)
--- NOTE | 2016-10-18 08:26 | XR ---
EXAMINATION TYPE: XR chest 2V DATE OF EXAM: 10/17/2016 8:31 PM COMPARISON: Prior chest x-ray first of October 2016 HISTORY: Pneumonia, lung cancer TECHNIQUE: Frontal and lateral views of the chest are obtained. FINDINGS: There is no pleural effusion, or pneumothorax seen. The cardiac silhouette size is within normal limits. Prominent lung volumes are again noted. Abnormal increased density present in the r ight upper lobe. The osseous structures are intact. IMPRESSION: Findings may represent pneumonia, there is abnormal density in the right upper lobe asso ciated with possible postobstructive atelectasis, tumor.
[2016-10-18] MEDS: INSULIN LISPRO (humaLOG) 300 UNIT/3 ML VIAL SQ SCH ×3 (08:48→18:40)
[2016-10-18] MEDS: ASPIRIN 81 MG CHEW PO SCH (08:51)
[2016-10-18] MEDS: CARVEDILOL 3.125 MG TAB PO SCH ×3 (08:51→18:51)
[2016-10-18] MEDS: AZITHROMYCIN 500 MG TAB PO SCH (08:51)
[2016-10-18 09:24] VITALS: BP 116/57; RESP 20; TEMP 99.5
[2016-10-18] MEDS: IPRATROPIUM-ALBUTEROL 3 ML NEB INHALATION SCH ×3 (09:48→15:42)
[2016-10-18 11:48] LABS: Glucose,Whole Blood 219 mg/dL (75-99)
--- NOTE | 2016-10-18 14:10 | P.PN ---
Subjective Date of service 10/17/2016 Interval history: This 81-year-old gentleman admitted with sepsis, probably secondary to postobstructive pneumonia in a patient with history of lung CA with metastatic disease and multiple other medical issues. Maintained on Rocephin, Zithromax, nebulized bronchodilators, IV fluid hydration with significant clinical improvement. Chest x-ray reporting abnormal density in the right upper lobe associated possible pneumonia, postobstructive atelectasis , tumor. Pleasantly confused. Denies chest pain, palpitations or increasing shortness of breath. Evaluated by physical therapy and subacute rehab recommended. Objective - Vital Signs Vital signs: Vital Signs Temp 98.3 F 10/17/16 15:41 Pulse 90 10/17/16 15:45 Resp 18 10/17/16 15:41 BP 112/56 10/17/16 15:41 Pulse Ox 94 L 10/17/16 15:41 Intake & Output 10/17/16 10/17/16 10/18/16 06:59 18:59 06:59 Output Total 350 100 Balance -350 -100 Weight 66.678 kg Output: Urine 350 100 Other: # Voids 4 1 # Bowel Movements 1 1 - Exam PHYSICAL EXAM: VITAL SIGNS: As above GENERAL: [Sitting up in bed, cachexic, no acute distress] HEENT: [Pupils equal conjunctiva normal.] NECK: [Supple, no JVD] RESPIRATORY EFFORT:[Normal] LUNGS: [Clear to auscultation, no wheezing, crackles or rhonchi] CARDIOVASCULAR[regular S1 and S2, no murmurs rubs or gallops ,no edema] GI: [Abdomen soft, nontender, positive bowel sounds.] PSYCH: [Alert and oriented -2, pleasantly confused, cooperative.] NEURO: Gross neurological examination didn't reveal any focal deficits - Labs CBC & Chem 7: 10/17/16 08:25 10/17/16 08:25 Labs: Abnormal Lab Results - Last 24 Hours (Table) 10/17/16 10/17/16 10/17/16 Range/Units 06:47 08:25 08:25 WBC 3.2 L (3.8-10.6) k/uL RBC 3.21 L (4.30-5.90) m/uL Hgb 10.1 L (13.0-17.5) gm/dL Hct 30.3 L (39.0-53.0) % Plt Count 65 L (150-450) k/uL Sodium 135 L (137-145) mmol/L Glucose 137 H (74-99) mg/dL POC Glucose (mg/dL) 130 H (75-99) mg/dL 10/17/16 10/17/16 10/17/16 Range/Units 11:03 16:47 20:36 WBC (3.8-10.6) k/uL RBC (4.30-5.90) m/uL Hgb (13.0-17.5) gm/dL Hct (39.0-53.0) % Plt Count (150-450) k/uL Sodium (137-145) mmol/L Glucose (74-99) mg/dL POC Glucose (mg/dL) 192 H 276 H 211 H (75-99) mg/dL Microbiology - Last 24 Hours (Table) 10/17/16 07:55 Gram Stain - Preliminary Sputum Sputum Culture - Preliminary Assessment and Plan Plan: 1. [Sepsis probably due to postobstructive pneumonia]. 2. [Generalized weakness multifactorial related to pneumonia, cancer]. 3. [Lung CA with metastatic disease, receiving chemotherapy and radiation therapy outpatient]. 4. [Thrombocytopenia secondary to chemotherapy. 5. [Diabetes mellitus]. 6. [Hyperlipidemia]. Plan: Continue on current medication regime, IV fluid hydration, nebulized bronchodilators, antibiotics, monitoring and symptomatic treatment. Discharge planning in progress for tomorrow to [facility] rehab. Further recommendations to follow. The impression and plan of care has been dictated as directed. : I performed a H&P examination of this patient and discussed the same with the dictator. I agree with the dictator's note. Any additional findings/opinions/ etc. will be noted.
--- NOTE | 2016-10-18 15:00 | P.PN ---
Subjective Principal diagnosis: weakness, fever Patient is seen today in follow-up. He is sitting in the chair with multiple family members in the room. Patient denies any difficulty breathing, nausea, shortness of breath or pain. He understands that the plan is for him to go to an extended care facility for some rehabilitation, he is in agreement with that plan. Objective - Vital Signs Vital signs: Vital Signs Temp 99.5 F 10/18/16 07:00 Pulse 86 10/18/16 13:27 Resp 20 10/18/16 08:00 BP 116/57 10/18/16 07:00 Pulse Ox 94 L 10/18/16 07:00 Intake & Output 10/17/16 10/18/16 10/18/16 18:59 06:59 18:59 Intake Total 1200 1300 Output Total 350 100 100 Balance -350 1100 1200 Weight 66.678 kg Intake: IV 1200 800 Sodium Chloride 0.9% 1, 1200 800 000 ml @ 100 mls/hr IV . Q10H DREW Rx#:[id number] Intake, IV Titration 100 Amount cefTRIAXone 1,000 mg In 100 Sodium Chloride 0.9% 50 ml @ 100 mls/hr IVPB Q24HR DREW Rx#:[id number] Oral 400 Output: Urine 350 100 100 Other: Voiding Method Urinal Urinal # Voids 1 1 3 # Bowel Movements 1 1 - Constitutional Constitutional Comment(s): Alert, oriented to self, place, time, most of his situation he remembers, lacks some details, no respiratory distress noted, pt is in chair, looks comfortable General appearance: Present: cooperative, no acute distress - Labs CBC & Chem 7: 10/17/16 08:25 10/17/16 08:25 Labs: Abnormal Lab Results - Last 24 Hours (Table) 10/17/16 10/17/16 10/18/16 Range/Units 16:47 20:36 07:30 POC Glucose (mg/dL) 276 H 211 H 111 H (75-99) mg/dL 10/18/16 Range/Units 11:44 POC Glucose (mg/dL) 219 H (75-99) mg/dL Microbiology - Last 24 Hours (Table) 10/17/16 07:55 Gram Stain - Preliminary Sputum Sputum Culture - Preliminary Assessment and Plan (1) Metastatic adenocarcinoma Narrative/Plan: Did review results of the chest x-ray with the patient and his family. Patient is currently receiving IV antibiotics and will be discharged to rehab with oral antibiotics. Patient has a follow-up with Dr. Ford on 317 at 1:30. He has completed whole brain radiation and he is status post 11 cycles of nivolumab. His PET scan in September did show significant decrease in FDG uptake in the right upper lobe mass. Further plans for treatment will be discussed at their follow-up visit with Dr. Ford and based on patient's performance status. Patient had other questions for social work regarding the rehabilitation facility so social work has been contacted to return for patient family questions. Next Patient is okay from a hematology/oncology standpoint to be discharged to rehabilitation when bed is available and patient is stable and cleared by internal medicine and other consults. Status: Chronic
[2016-10-18 15:46] VITALS: PULSE 80
[2016-10-18] MEDS: INSULIN GLARGINE 100 UNIT/ML 10 ML VIAL SQ SCH (15:49)
--- NOTE | 2016-10-18 16:13 | P.PN ---
Subjective Date of service 10/18/2016 Interval history: This 81-year-old gentleman admitted with sepsis, probably secondary to postobstructive pneumonia in a patient with history of lung CA with metastatic disease and multiple other medical issues. Continues on nebulized bronchodilators, IV antibiotics, IV fluid hydration. Breathing improved. Denies chest pain, palpitations or increasing shortness of breath. T- max 99.5. Objective - Vital Signs Vital signs: Vital Signs Temp 99.5 F 10/18/16 07:00 Pulse 80 10/18/16 15:55 Resp 20 10/18/16 15:34 BP 116/57 10/18/16 07:00 Pulse Ox 94 L 10/18/16 07:00 Intake & Output 10/17/16 10/18/16 10/18/16 18:59 06:59 18:59 Intake Total 1200 1300 Output Total 350 100 200 Balance -350 1100 1100 Weight 66.678 kg Intake: IV 1200 800 Sodium Chloride 0.9% 1, 1200 800 000 ml @ 100 mls/hr IV . Q10H DREW Rx#:[id number] Intake, IV Titration 100 Amount cefTRIAXone 1,000 mg In 100 Sodium Chloride 0.9% 50 ml @ 100 mls/hr IVPB Q24HR DREW Rx#:[id number] Oral 400 Output: Urine 350 100 200 Other: Voiding Method Urinal Urinal # Voids 1 1 3 # Bowel Movements 1 1 - Exam PHYSICAL EXAM: VITAL SIGNS: As above GENERAL: [Sitting up in bed, cachexic, no acute distress] HEENT: [Pupils equal conjunctiva normal.] NECK: [Supple, no JVD] RESPIRATORY EFFORT:[Normal] LUNGS: [Clear to auscultation, no wheezing, crackles or rhonchi] CARDIOVASCULAR[regular S1 and S2, no murmurs rubs or gallops ,no edema] GI: [Abdomen soft, nontender, positive bowel sounds.] PSYCH: [Alert and oriented -2, pleasantly confused, cooperative.] NEURO: Gross neurological examination didn't reveal any focal deficits - Labs CBC & Chem 7: 10/17/16 08:25 10/17/16 08:25 Labs: Abnormal Lab Results - Last 24 Hours (Table) 10/17/16 10/17/16 10/18/16 Range/Units 16:47 20:36 07:30 POC Glucose (mg/dL) 276 H 211 H 111 H (75-99) mg/dL 10/18/16 Range/Units 11:44 POC Glucose (mg/dL) 219 H (75-99) mg/dL Microbiology - Last 24 Hours (Table) 10/17/16 07:55 Gram Stain - Preliminary Sputum Sputum Culture - Preliminary Assessment and Plan Plan: 1. [Sepsis probably due to postobstructive pneumonia]. 2. [Generalized weakness multifactorial related to pneumonia, cancer]. 3. [Lung CA with metastatic disease, receiving chemotherapy and radiation therapy outpatient]. 4. [Thrombocytopenia secondary to chemotherapy. 5. [Diabetes mellitus]. 6. [Hyperlipidemia]. Plan: Continue on current medication regime, IV fluid hydration, nebulized bronchodilators, antibiotics, monitoring and symptomatic treatment. Discharge planning in progress for ECF rehab. today. Further recommendations to follow. The impression and plan of care has been dictated as directed. : I performed a H&P examination of this patient and discussed the same with the dictator. I agree with the dictator's note. Any additional findings/opinions/ etc. will be noted.
--- NOTE | 2016-10-18 17:20 | P.DS ---
Providers Date of admission: 10/16/16 11:30 Expected date of discharge: 10/18/16 Attending physician: Sahil Christensen Consults: 10/16/16 17:02 Consult Physician Routine Consulting Provider: Beau Catalan Consult Reason/Comments: cancer, known to office Do you want consulting provider notified?: Yes Primary care physician: [facility] Course: Final diagnoses: 1. [Sepsis probably due to postobstructive pneumonia]. 2. [Generalized weakness multifactorial related to pneumonia, cancer]. 3. [Lung CA with metastatic disease, receiving chemotherapy and radiation therapy outpatient]. 4. [Thrombocytopenia secondary to chemotherapy. 5. [Diabetes mellitus]. 6. [Hyperlipidemia]. Hospital course:This is a 81-year-old gentleman admitted with sepsis, probably secondary to postobstructive pneumonia in a patient with history of lung CA with metastatic disease and multiple other medical issues. Maintained on Rocephin, Zithromax, nebulized bronchodilators, IV fluid hydration with significant clinical improvement. Chest x-ray reporting abnormal density in the right upper lobe associated possible pneumonia, postobstructive atelectasis , tumor. Evaluated by physical therapy and subacute rehab recommended. Cleared for discharge by Dr. Catalan. Patient is being discharged to [facility] rehab in a stable condition with guarded prognosis. Microbiology 10/16/16 09:35 Blood Blood Culture - Preliminary No Growth after 48 hours 10/17/16 07:55 Sputum Gram Stain - Preliminary 10/17/16 07:55 Sputum Sputum Culture - Preliminary Patient Condition at Discharge: Stable Plan - Discharge Summary New Discharge Prescriptions: Amoxic-Pot Clav 875-125Mg [Augmentin 875-125] 1 tab PO Q12HR #20 tablet INSULIN LISPRO (HumaLOG) [humaLOG] 0 unit SQ ACHS #1 vial Discharge Medication List Aspirin [Adult Low Dose Aspirin EC] 81 mg PO DAILY 09/26/15 [History] Calcium Carbonate/Vitamin D3 [Calcium 600-Vit D3 400 Tablet] 1 tab PO DAILY 05/03 [History] Carvedilol [Coreg] 3.125 mg PO BID 09/26/15 [History] Cyanocobalamin [Vitamin B-12] 1,000 mg PO Q48H 09/26/15 [History] Ferrous Sulfate [Iron (65 MG Elemental)] 325 mg PO DAILY 09/26/15 [History] Insulin Glargine [Lantus] 10 unit SQ PC-LUNCH 09/26/15 [History] Multivit-Min/FA/Lycopene/Lut [Centrum Silver Tablet] 1 tab PO DAILY 09/26/15 [ History] Ascorbic Acid [Vitamin C] 500 mg PO HS 10/07/16 [History] Amoxic-Pot Clav 875-125Mg [Augmentin 875-125] 1 tab PO Q12HR #20 tablet [Rx] INSULIN LISPRO (HumaLOG) [humaLOG] 0 unit SQ ACHS #1 vial 10/18/16 [Rx] Ipratropium-Albuterol Nebulize [Duoneb 0.5 mg-3 mg/3 ml Soln] 3 ml INHALATION RT -QID #0 ampul.neb 10/18/16 [Rx] Follow up Appointment(s)/Referral(s): Anshul Ford MD [STAFF PHYSICIAN] - 11/01/16 1:30 pm Anshul Betancourt MD [Primary Care Provider] - 3 Days Activity/Diet/Wound Care/Special Instructions: [facility] Diet: Consistent carb Activity: As tolerated CBC, BMP in 3 days Discharge Disposition: TRANSFER TO SNF/ECF
[2016-10-18 18:41] LABS: Glucose,Whole Blood 285 mg/dL (75-99)
== END 2016-10-18 19:10 | DRG 871 ==
LOC: EC 09:20 → 5ONC 11:30
PROVIDERS: ADMIT Internal Medicine; ATTEND Internal Medicine
DX: A41.9 Sepsis, unspecified organism (principal); J18.9 Pneumonia, unspecified organism; C79.51 Secondary malignant neoplasm of bone; C79.31 Secondary malignant neoplasm of brain; R64 Cachexia; D69.59 Other secondary thrombocytopenia; C34.91 Malignant neoplasm of unspecified part of right bronchus or lung; E11.9 Type 2 diabetes mellitus without complications; Z66 Do not resuscitate; T45.1X5A Adverse effect of antineoplastic and immunosuppressive drugs, initial encounter; E78.5 Hyperlipidemia, unspecified; E86.0 Dehydration; I10 Essential (primary) hypertension; I45.10 Unspecified right bundle-branch block; Z68.20 Body mass index [BMI] 20.0-20.9, adult; Z85.46 Personal history of malignant neoplasm of prostate; Z92.3 Personal history of irradiation; Z98.42 Cataract extraction status, left eye; Z98.41 Cataract extraction status, right eye; Z96.1 Presence of intraocular lens; Z91.81 History of falling; Z87.891 Personal history of nicotine dependence; Z87.442 Personal history of urinary calculi; Z79.82 Long term (current) use of aspirin; Z79.4 Long term (current) use of insulin; Z79.84 Long term (current) use of oral hypoglycemic drugs; Z79.899 Other long term (current) drug therapy
CPT/HCPCS: 36415; 71020; 80048; 80053; 81001; 83036; 83605; 85025; 85027; 87040; 87070; 87205; 87502; 93005; 94640; 96361; 96365; 99285